=== PATIENT | male | born 1940 | race Caucasian/White ===

== ENCOUNTER 2018-03-15 20:02 | Inpatient (IN) | payer MEDICARE ==
[2018-03-15 21:07] LABS: % BASOPHILS 0.4 % (0.0-2.0); % EOSINOPHILS 0.9 % (0.0-5.0); % LYMPHOCYTES 31.4 % (20.0-50.0); % MONOCYTES 8.5 % (2.0-10.0); % NEUTROPHILS 58.8 % (40.0-80.0); EOSINOPHILE ABSOLUTE 0.1 Th/cmm (0.1-0.4); HEMATOCRIT 42.4 % (41.0-60); HEMOGLOBIN 14.1 gm/dL (12-16); LYMPHOCYTE ABSOLUTE 1.9 Th/cmm (1.5-3.0); MEAN CELL VOLUME 87.4 fl (80-99); MEAN CORPUSCULAR HEMOGLOBIN 29.2 pg (27.0-31.0); MEAN CORPUSCULAR HGB CONC 33.3 pg (28.0-36.0); MEAN PLATELET VOLUME 7.9 fl; MONOCYTE ABSOLUTE 0.5 Th/cmm (0.3-1.0); NEUTROPHILE ABSOLUTE 3.5 Th/cmm (1.8-8.0); PLATELET COUNT 215 Th/cmm (150-400); RED BLOOD COUNT 4.85 Mil/cmm (3.80-5.80)
[2018-03-15 21:30] LABS: ALB/GLOB RATIO 1.3 (1.0-1.8); ALBUMIN 3.8 gm/dL (4.2-5.5); ALKALINE PHOSPHATASE 107 U/L (34-104); ANION GAP 9.9 (7.0-16.0); BILIRUBIN,TOTAL 0.3 mg/dL (0.3-1.0); BUN - UREA NITROGEN 23 mg/dL (7-25); CALCIUM SERUM 9.6 mg/dL (8.6-10.3); CARBON DIOXIDE 32.6 mEq/L (21.0-31.0); CHLORIDE 95 mEq/L (98-107); GLUCOSE 317 mg/dL (70-105); POTASSIUM SERUM 3.5 mEq/L (3.5-5.1); SGOT 17 U/L (13-39); SGPT/ALT 20 U/L (7-52); SODIUM SERUM 134 mEq/L (136-145); TOTAL PROTEIN,SERUM 6.8 gm/dL (6.0-8.3)
[2018-03-15] MEDS ORDERED: Potassium Chloride 20 mEq ER Tab PO ONE ×2 (21:42→22:28)
--- NOTE | 2018-03-15 22:09 | ED Physician Chart ---
ED Chief Complaint/HPI - Patient Information Date Seen:: 03/15/18 Time Seen:: 21:45 Chief Complaint:: agitation History of Present Illness:: 77 yr old male from [facility] with hx of cva mi dementia dm2 generalized weakness for geropsych evaluation Allergies:: Allergies Allergy/AdvReac Type Severity Reaction Status Date / Time No Known Allergies Allergy Verified 03/15/18 20:24 Vitals:: Vital Signs - 8 hr 03/15/18 20:15 Temp 97.8 F HR 80 RR 18 BP 145/82 O2 Sat % 98 ED Review of Systems - Review of Systems General/Constitutional: No fever Eyes: No loss of vision Neck: No neck pain Cardio Vascular: No chest pain Pulmonary: No SOB GI: No vomiting Endocrine: No polyuria Psychiatric: Anxiety Neurological: No syncope ED Past Medical History - Past Medical History Past Medical History: HTN, DM, Dyslipidemia Family Medical History - Family Member Mother History Unknown: Yes ED Physical Exam - Physical Examination General/Constitutional: Awake, No distress Head: Atraumatic Skin: No rash ENMT: External ears, nose nl Neck: Nontender Respiratory: Nl effort/Exclusion Cardio Vascular: RRR GI: No tenderness/rebounding/guarding Extremities: No tenderness or effusion ED Labs/Radiology/EKG Results - Lab Results Results: Laboratory Tests 03/15/18 03/15/18 03/15/18 21:00 21:00 21:00 WBC 6.0 RBC 4.85 Hgb 14.1 Hct 42.4 MCV 87.4 MCH 29.2 MCHC Differential 33.3 RDW 13.0 Plt Count 215 MPV 7.9 Neutrophils % 58.8 Lymphocytes % 31.4 Monocytes % 8.5 Eosinophils % 0.9 Basophils % 0.4 Sodium 134 L Potassium 3.5 Chloride 95 L Carbon Dioxide 32.6 H Anion Gap 9.9 BUN 23 Creatinine 1.0 Est GFR ( Amer) TNP Est GFR (Non-Af Amer) TNP BUN/Creatinine Ratio 23.0 Glucose 317 H Calcium 9.6 Total Bilirubin 0.3 AST 17 ALT 20 Alkaline Phosphatase 107 H Total Protein 6.8 Albumin 3.8 L Globulin 3.0 Albumin/Globulin Ratio 1.3 TSH 1.47 ED Assessment - Assessment General Assessment: dementia anxiety ED Septic Shock - . Is Septic Shock (SBP<90, OR Lactate>4 mmol\L) present?: No - <6hrs of presentation: Vital Signs: Vital Signs - 8 hr 03/15/18 20:15 Temp 97.8 F HR 80 RR 18 BP 145/82 O2 Sat % 98 ED Reassessment (Disposition) - Reassessment Reassessment Condition:: Unchanged - Diagnosis Diagnosis:: dementia anxiety - Patient Disposition Discharge/Transfer:: Acute Care w/in this hosp
[2018-03-15 23:14] VITALS: BP 132/70
[2018-03-16] MEDS ORDERED: Magnesium Hydroxide (MOM) 30 mL UDC PO PRN (00:16)
[2018-03-16 08:37] LABS: CHOLESTEROL 182 mg/dL (<200); HDL -HIGH DENSITY LIPOPROTEIN 41 mg/dL (23-92); TRIGLYCERIDES 74 mg/dL (<150)
[2018-03-16] MEDS: Aspirin 81mg Chewable Tab PO SCH (09:20)
--- NOTE | 2018-03-16 10:46 | History & Physical ---
ADMIT DATE: 03/16/2018 THE PATIENT'S ID: A 77-year-old male. CHIEF COMPLAINT: "I live in [place] HISTORY SOURCE: Talking to the patient, reviewing the chart. HISTORY OF PRESENT ILLNESS: A 77-year-old male with history of diabetes mellitus, hypertension, hyperlipidemia, history of CVA with expressive aphasia and left-sided weakness, resides in a prison, brought into the Emergency Room for evaluation of underlying psychotic illness. The patient was seen by ER MD and now being admitted. I have been asked this patient to manage medical problem. PAST MEDICAL HISTORY: Remarkable for: 1. Diabetes. 2. Hypertension. 3. Hyperlipidemia. 4. Degenerative joint disease. 5. Cerebrovascular accident with left-sided weakness. 6. Coronary artery disease. 7. Expressive aphasia. MEDICATIONS: At the time of transfer, the patient is taking multiple medications, which include Tylenol, aspirin, atenolol, bisacodyl, Plavix, Vasotec, lorazepam, magnesium, simvastatin, and Ambien. ALLERGIES: The patient is not allergic to medication. SOCIAL HISTORY: He resides in a prison. 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 The patient has previous history of smoking cigarette and alcohol use, but no current use. No street drug use. FAMILY MEDICAL HISTORY: Remarkable for diabetes and hypertension as per the patient's account. REVIEW OF SYSTEMS: Extremely limited due to expressive aphasia, but up on further questioning, the patient denies any headache, chest pain, short of breath, palpitation, dizziness, nausea, vomiting, diarrhea, dysuria, hematuria, hematochezia, melena, seizure or syncopal episode. PHYSICAL EXAMINATION: GENERAL: Alert, awake, lying in the bed without any acute distress. VITAL SIGNS: Temperature 97.2, pulse 60, respiratory rate 18, blood pressure 117/60. HEENT: Normocephalic, atraumatic. Extraocular muscles are intact. Tongue was pink and coated. Poor dentition noted. NECK: Supple, no JVD, no hepatojugular reflex. No lymphadenopathy, thyromegaly, or carotid bruit. HEART: Both heart sounds are regular. Grade 2/6 systolic murmur noted. CHEST AND LUNGS: Equal in expansion, no expiratory wheezing. ABDOMEN: Protuberant, soft. No guarding, no rigidity. Liver and spleen are not palpable. No palpable mass. EXTREMITIES: No edema, no cyanosis. Peripheral pulses are +1. No calf tenderness noted. NEUROLOGIC: Unremarkable. Alert, awake, and follows commands. No facial asymmetry. Expressive aphasia noted. Moving right upper and lower extremities. The right side is 5+ and left lower extremity and upper extremity power is 4- with significant spasticity noted with hyperreflexia. Babinskis, left side is going up and right side is going down. AVAILABLE DIAGNOSTIC DATA: Glucose of 317. BUN and creatinine is 134, potassium 3.5, chloride 95, CO2 32.6, BUN and creatinine is 23 and 1.0, cholesterol papilla profile are normal. CBC is within normal limit. I do not see any chest x-ray and EKG for my review. CLINICAL IMPRESSIONS: 1. Psychiatric disorder. 2. Diabetes mellitus. 3. Hypertension. 4. Hyperlipidemia. 5. Degenerative joint disease. 6. Coronary artery disease. 7. Cerebrovascular accident with late effect. 8. Expressive aphasia. 9. High risk for fall. 10. Decline in self-care and mobility. PLAN: The patient is admitted at this time to psychiatric facility. Psychotic evaluation and management deferred to psychiatrist. The patient will be placed on Glucoscan a.c. and at bedtime and cover the blood through sliding scale NovoLog insulin. I will put the patient on metformin. Resume his hypertensive as well as antiplatelet therapy for now. Fall precaution will be given. General nursing care will be provided. The patient will have glycohemoglobin A1c and we will continue to follow this patient during the stay in the hospital. Dysphagia diet will be provided if the patient has a significant amount of dysphagia. Care plan reviewed and discussed with staff. JOB# [id number]
[2018-03-16] MEDS: INSULIN ASPART SLIDING SCALE 100 UNITS/ML UNIT SUBQ SCH ×3 (11:52→21:16)
--- NOTE | 2018-03-16 21:52 | Psychiatric Evaluation ---
DATE OF SERVICE: 03/16/2018 IDENTIFYING DATA: The patient is a 77-year-old resident of [facility]. Information obtained by directly interviewing the patient as well as reviewing the admission papers. JUSTIFICATION OF HOSPITALIZATION: The patient is admitted here on a voluntary basis in view of his increasing agitation and paranoia. The patient is also reported to have been feeling depressed and has been having difficult time. CHIEF COMPLAINT: "I am sad and bored." HISTORY OF PRESENT ILLNESS: This is the first psychiatric hospitalization to the [facility] for this patient who is reported to have been getting increasingly agitated and paranoid. The patient is reported to have been feeling depressed. Sleep is noted to be very poor, but during the interview, the patient is stating that he is okay, but feeling a little bit sad. PAST PSYCHIATRIC HISTORY: Details are not known. MEDICAL HISTORY: Physical examination is requested to be Dr. Rosenberg. SUBSTANCE ABUSE HISTORY: None. PHYSICAL OR SEXUAL ABUSE HISTORY: None. LEGAL PROBLEMS: None at this time. STRENGTH AND ASSETS: The patient is motivated. MENTAL STATUS EXAMINATION: The patient is a 77-year-old, looking his stated age, superficially cooperative. Eye contact is poor. Mood is noted to be depressed. Affect is constricted. The patient's insight and judgment are noted to be very much impaired. Impulse control is noted to be poor. The patient has been having difficult time to cope with the stress. The patient is noted to be paranoid, but denies any command hallucinations. The patient is alert and awake and he is fully aware that he is in the hospital, but he is not able to recall his date of . Attention span and concentration are also noted to be poor. 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 AXIS II: None. AXIS III: Hypertension, diabetes mellitus, history of metabolic encephalopathy. IMMEDIATE TREATMENT PLAN: The patient is going to be continued on the supportive therapy and a p.r.n. dose of medications and the patient is going to be started with the low dose of the Lexapro for his depression and a low dose of Seroquel is going to be given at night time for the paranoia and the patient is going to be closely monitored. I encouraged to verbalize the concerns rather than to act out. JOB# [id number]
[2018-03-17] MEDS: INSULIN ASPART SLIDING SCALE 100 UNITS/ML UNIT SUBQ SCH ×3 (06:53→21:39)
[2018-03-17] MEDS: Escitalopram Oxalate 5 mg Tab PO SCH (09:29)
[2018-03-17] MEDS: Aspirin 81mg Chewable Tab PO SCH (09:30)
[2018-03-17 23:20] LABS: A1C % 8.3 % (4.0-6.0)
--- NOTE | 2018-03-17 23:29 | Consultation ---
DATE OF CONSULTATION: 03/17/2018 REFERRING PHYSICIAN: Arlene Monroe M.D. TYPE OF CONSULTATION: Psychology. HISTORY OF PRESENT ILLNESS: The patient is a 77-year-old male. The patient is a resident of [facility]. The following is by record review and the patient's self-report. The patient is being admitted due to increased agitation as well as paranoia. The patient also has been reporting to staff at his facility that he is feeling depressed. The patient acknowledged that he has become more depressed over time. The patient states that he feels hopeless and helpless and that he is bored and very sad. The patient denied any suicidal ideation, plan or intention; however, the patient has a possible passive wish to . The patient did not endorse this item completely. PAST MEDICAL HISTORY: Please see history and physical by Dr. Rosenberg. PAST PSYCHIATRIC HISTORY: According to record review, the patient has a history of depression. The patient is under the care of a psychiatrist at his placement. SUBSTANCE ABUSE HISTORY: The patient denies any history. PSYCHOSOCIAL HISTORY: The patient did not answer questions about occupational or educational history or protestant affiliation. The patient did not answer questions about history of physical or sexual abuse. The patient denied any current legal problems. MENTAL STATUS EXAMINATION: The patient appears to be his stated age. The patient's attitude is superficially cooperative. Eye contact is poor. Speech is spontaneous. Mood is depressed. Affect is mood congruent and restricted. The patient's thought process shows to be depressogenic and somewhat confused. However, he is responding relevantly at times.The patient denied any auditory or visual hallucinations. There is some evidence of paranoid ideation and this needs further evaluation. The patient denied any suicidal ideation, plan or intention; however, the patient indicated a passive wish to . Sensorium is alert and oriented to self and place. Impulse control is limited. Concentration is fair to poor. The patient did not participate in the memory assessment. The patient did not participate in the interpretation of proverbs. Insight is poor. Judgment is compromised. DIAGNOSTIC IMPRESSION: AXIS I: 1. Psychotic disorder, not otherwise specified. 2. Depressive disorder, not otherwise specified. AXIS II: Deferred. AXIS III: Per Dr. Rosenberg. TREATMENT PLAN: The patient is being seen by Dr. Monroe for psychiatric evaluation and for the management of the patient's psychotropic medications. We will provide supportive psychotherapy to include reality orientation, differentiation and integration. We will provide cognitive behavioral therapy to reduce his depression if the patient is able to follow this type of psychotherapeutic intervention. We will provide coping strategies for phase of life issues and mortality as well. We will encourage the patient to verbally contract for safety including no self-harm. We will encourage the patient to verbalize any thoughts of wanting to or any passive suicidal thoughts. The patient is being continued on Lexapro for his depression. Thank you, Dr. Monroe, for this consult and the opportunity to participate in this patient's care. JOB# [id number] CALVIN
--- NOTE | 2018-03-18 04:25 | Progress Notes ---
DATE: 03/17/2018 PSYCHIATRIC PROGRESS NOTE SUBJECTIVE: Staff was spoken to. The patient is interviewed. Mood is noted to be depressed. Affect is constricted. The patient is isolative and withdrawn. Coping skills are noted to be poor. The patient has been having difficult time to cope with the stress. The patient is currently on 5 mg of the escitalopram and then 12.5 mg of the Seroquel and has been able to tolerate the medications. No side effects to the medications are noted. ASSESSMENT: The patient is still depressed. PLAN: To continue the patient with these above medications and followup. JOB# [id number]
[2018-03-18] MEDS: INSULIN ASPART SLIDING SCALE 100 UNITS/ML UNIT SUBQ SCH ×4 (06:54→21:41)
[2018-03-18] MEDS: Aspirin 81mg Chewable Tab PO SCH (09:18)
[2018-03-18] MEDS: Escitalopram Oxalate 5 mg Tab PO SCH (09:18)
--- NOTE | 2018-03-18 22:16 | Progress Notes ---
DATE: 03/18/2018 THE PATIENT'S IDENTIFICATION: A 77-year-old male. SUBJECTIVE. The patient was seen and examined. The patient lying in the bed, has complex medical problem. The patient does not provide any meaningful history on today's exam. PHYSICAL EXAMINATION: VITAL SIGNS: Temperature is 98, pulse is 74, respiratory rate is 18, blood pressure is 130/80. HEENT: No facial asymmetry. NECK: Supple, no JVD. HEART: Regular. CHEST AND LUNGS: Equal in expansion, no expiratory wheezing. ABDOMEN: Soft. No guarding, no rigidity. Bowel sounds present. No palpable mass. EXTREMITIES: No edema. NEUROLOGIC: Remarkable for expressive aphasia and left-sided weakness noted with spasticity. CLINICAL IMPRESSION: 1. Psychotic disorder. 2. Diabetes. 3. Hypertension. 4. Hyperlipidemia. 5. Cerebrovascular accident with left late effect. 6. Degenerative joint disease. 7. Expressive aphasia. 8. High risk for fall. PLAN: 1. Psych medication and psych followup. 2. Diabetes management. 3. Antihypertensive medicine. 4. Statin. 5. Medical management for coronary artery disease. 6. Dysphagia diet. 7. General nursing care. 8. Follow lab. 9. We will continue to follow this patient during the stay in the hospital. JOB# [id number]
--- NOTE | 2018-03-18 23:41 | Progress Notes ---
DATE: 03/18/2018 SUBJECTIVE: Staff was spoken to. The patient is interviewed. Mood is noted to be irritable. Affect is constricted. The patient's insight and judgment are noted to be still impaired. Impulse control is noted to be poor. Coping skills are also noted to be very poor. The patient has been having difficult time to cope with the stress. No side effects to the medications are noted. The patient is isolative and withdrawn. The patient is currently on escitalopram 5 mg. In view of the depression, it is going to be increased to 10 mg and the patient is going to be closely monitored with the supportive psychotherapy and the patient is encouraged to participate in the groups and verbalize the concerns. ASSESSMENT: The patient is still depressed. PLAN: To continue the patient with the supportive therapy and followup. JOB# [id number]
[2018-03-19] MEDS: INSULIN ASPART SLIDING SCALE 100 UNITS/ML UNIT SUBQ SCH ×4 (06:47→20:06)
[2018-03-19] MEDS: Aspirin 81mg Chewable Tab PO SCH (08:50)
--- NOTE | 2018-03-19 10:50 | Progress Notes ---
DATE: 03/19/2018 SUBJECTIVE: Staff was spoken to. The patient is interviewed. Mood is noted to be irritable. Affect is constricted. The patient is reported to have been getting out of the bed and has been trying to turn the light on and off and his roommate has been getting easily frustrated. The patient has been having difficult time to cope with the stress. No side effects to the medications are noted, but patient has been displaying short as well as long-term memory deficits. The patient is currently on 12.5 mg of the Seroquel and has been able to tolerate. In view of his impulsivity, it is decided to increase the dose of the Seroquel to 25 mg and follow the patient with the supportive therapy. [facility]# [id number]
--- NOTE | 2018-03-19 18:15 | Progress Notes ---
DATE: SUBJECTIVE: The patient seen and examined. The patient is sitting in the chair. The patient does not provide a meaningful history. PHYSICAL EXAMINATION: VITAL SIGNS: Temperature 98, pulse 64, respirations 18, and blood pressure 134/70. HEENT: No facial asymmetry. NECK: Supple, no JVD. HEART: Regular, no murmur. CHEST: Lung equal in expansion, no expiratory wheezing. ABDOMEN: Soft, no guarding or rigidity. Bowel sounds present. No palpable mass. EXTREMITIES: No edema. NEUROLOGY: Left-sided weakness noted. CLINICAL IMPRESSION: 1. Hypertension. 2. Hyperlipidemia. 3. Cerebrovascular accident with late effect. 4. Degenerative joint disease. 5. Psychotic disorder. PLAN: 1. Psychotic evaluation and management deferred to Psychiatry. 2. Antihypertensive medicine. 3. Statins. 4. Monitor blood pressure. 5. General nursing care. 6. Fall precaution. 7. Nutrition support. 8. Care plan reviewed. JOB# [id number]
[2018-03-20] MEDS: Aspirin 81mg Chewable Tab PO SCH (08:37)
[2018-03-20] MEDS: INSULIN ASPART SLIDING SCALE 100 UNITS/ML UNIT SUBQ SCH ×3 (11:58→21:16)
--- NOTE | 2018-03-21 00:24 | Progress Notes ---
DATE: 03/20/2018 PSYCHIATRIC PROGRESS NOTE PROGRESS ON THE UNIT: Staff was spoken to. The patient is interviewed. Mood is noted to be irritable. Affect is constricted. The patient is isolative and withdrawn. The patient has been getting up too many times and has been turning the lights on and off. The patient has been confused. The patient has no insight into his illness. No side effects to the medications are noted. ASSESSMENT: The patient is still depressed and psychotic at this time. PLAN: To closely monitor the patient. I encouraged the patient to verbalize the concerns rather than to act out. Since the patient's blood sugar has been coming very high, it is decided to order the lipid panel for this patient. [facility]# [id number]
[2018-03-21] MEDS: INSULIN ASPART SLIDING SCALE 100 UNITS/ML UNIT SUBQ SCH ×4 (06:37→20:59)
[2018-03-21] MEDS: Aspirin 81mg Chewable Tab PO SCH (08:29)
--- NOTE | 2018-03-21 09:49 | Progress Notes ---
DATE: SUBJECTIVE: The patient is alert, awake, and confused. The patient is without any distress. The patient still has a labile mood. The patient does not provide a meaningful history. PHYSICAL EXAMINATION: VITAL SIGNS: Temperature 97.2, pulse 65, respiratory rate 18, blood pressure 144/67 Glucoscan is reviewed. Medication administration record has been reviewed. HEENT: No facial asymmetry. NECK: Supple, no JVD. HEART: Regular. CHEST: Lung equal in expansion, no expiratory wheezing. ABDOMEN: Soft. No guarding, no rigidity. Bowel sounds present. No palpable mass. EXTREMITIES: No edema. NEUROLOGIC: Remarkable for left-sided weakness. CLINICAL IMPRESSION: 1. Diabetes. 2. Hypertension. 3. Hyperlipidemia. 4. Coronary artery disease. 5. Psychotic disorder. 6. Degenerative joint disease. 7. Cerebrovascular accident with late effect. 8. High risk for fall. PLAN: 1. Psych medication and psych followup. 2. Monitor blood sugar and use sliding scale insulin. 3. Antihypertensive medicine. 4. Statin. 5. General nursing care. 6. Fall precautions. 7. Nutritional support. 8. Symptomatic therapy. 9. Metformin. 10. Care plan reviewed and discussed with staff. JOB# [id number]
--- NOTE | 2018-03-21 23:29 | Progress Notes ---
DATE: 03/21/2018 PSYCHIATRIC PROGRESS NOTE SUBJECTIVE: Staff was spoken to. The patient is interviewed. Mood is noted to be irritable. Affect is constricted. Insight and judgment at this time are noted to be still impaired. Impulse control is noted to be limited. Coping skills are noted to be limited. The patient is getting frustrated. No side effects to the medications are noted. ASSESSMENT: The patient is still impulsive and demented. PLAN: To continue the patient with the supportive therapy and followup. JOB# [id number]
[2018-03-22] MEDS: INSULIN ASPART SLIDING SCALE 100 UNITS/ML UNIT SUBQ SCH ×2 (06:41→11:49)
[2018-03-22] MEDS: Aspirin 81mg Chewable Tab PO SCH (10:04)
--- NOTE | 2018-03-22 20:21 | Discharge Summary ---
DATE OF DISCHARGE: 03/22/2018 IDENTIFYING DATA: The patient is a 77-year-old resident of [facility]. Information obtained directly interviewing the patient as well as reviewing the admission papers and they are reliable. JUSTIFICATION OF HOSPITALIZATION: The patient is admitted on a voluntary basis for increased agitation and paranoia. CHIEF COMPLAINT: "I am sad and bored." DIAGNOSES AT THE TIME OF ADMISSION: AXIS I: Psychotic disorder, not otherwise specified. IB.: Depressive disorder, not otherwise specified. AXIS II: None. AXIS III: Hypertension, diabetes mellitus, and metabolic encephalopathy. HISTORY OF PRESENT ILLNESS: Please refer the 03/16/2018 dictation done by me. Physical examination at the time of admission was done by Dr. Rosenberg and is noted to be significant for the high blood pressure and diabetes mellitus. HOSPITAL COURSE AND RESPONSE TO TREATMENT: The patient has been started on escitalopram that was given 10 mg and the patient has been given the Seroquel 25 mg and with these medications, the patient has been observed. The patient's blood sugar was coming a little bit higher to 134 and the patient has been closely monitored. I encouraged to verbalize the concerns rather than to act out. The patient was finally discharged with recommendation that he is going to be seeking treatment on an outpatient basis. MENTAL STATUS EXAMINATION: At the time of discharge, the patient noted to be anxious. Affect is appropriate. Not suicidal or homicidal. Insight and judgment are noted to be fair. Impulse control is also noted to be fair. No side effects to the medications are noted. The patient has been able to verbalize the concerns rather than to act out, at the time of discharge, the patient is motivated for treatment. DIAGNOSES AT THE TIME OF DISCHARGE: AXIS I: Psychotic disorder, not otherwise specified. IB: Dementia and behavioral change secondary to ____ AXIS II: None. AXIS III: As per Dr. Rosenberg. There is hypertension and diabetes mellitus. AFTERCARE PLAN: The patient is discharged to [facility] for further care. JOB# [id number]
== END 2018-03-22 16:00 | DRG 885 ==
LOC: ER 20:02 → GERO2 21:30
PROVIDERS: ADMIT Psychiatry & Neurology Psychiatry; ATTEND Psychiatry & Neurology Psychiatry
DX: F29 Unspecified psychosis not due to a substance or known physiological condition (principal); F03.91 Unspecified dementia, unspecified severity, with behavioral disturbance; I69.354 Hemiplegia and hemiparesis following cerebral infarction affecting left non-dominant side; I25.2 Old myocardial infarction; E11.9 Type 2 diabetes mellitus without complications; I10 Essential (primary) hypertension; E78.5 Hyperlipidemia, unspecified; F41.9 Anxiety disorder, unspecified; M19.90 Unspecified osteoarthritis, unspecified site; I25.10 Atherosclerotic heart disease of native coronary artery without angina pectoris; F32.9 Major depressive disorder, single episode, unspecified; I69.320 Aphasia following cerebral infarction; Z91.81 History of falling; Z83.3 Family history of diabetes mellitus; Z82.49 Family history of ischemic heart disease and other diseases of the circulatory system
CPT/HCPCS: 36415-UA; 80053-TC; 80061-TC; 82948-90; 83036-90; 84443-TC; 85025-TC; 86592-TC; 93005; J1815; Z7610